=== PATIENT | male | born 1980 | race Caucasian/White ===

== ENCOUNTER 2019-08-28 12:16 | Inpatient (IN) | payer OTHER ==
[~2019-08-28] VITALS: Ht 185.4 cm; Wt 114.5 kg
[~2019-08-28 12:16] MED LIST: AMIT10 PO; NAPR500 PO
[2019-08-28 12:39] LABS: BASOPHILS ABSOLUTE AUTO 0.05 K/mm3 (0.00-0.23); BASOPHILS PERCENT AUTO 1 % (0-2); EOSINOPHILS ABSOLUTE AUTO 0.26 K/mm3 (0.00-0.68); EOSINOPHILS PERCENT AUTO 5 % (0-6); Hematocrit 44.2 % (37.0-53.0); Hemoglobin 14.8 g/dL (13.5-17.5); IMMATURE GRAN ABSOLUTE AUTO 0.02 K/mm3 (0.00-0.10); IMMATURE GRAN PERCENT AUTO 0 % (0-1); LYMPHOCYTES ABSOLUTE AUTO 1.77 K/mm3 (0.84-5.20); LYMPHOCYTES PERCENT AUTO 34 % (21-46); MONOCYTES ABSOLUTE AUTO 0.27 K/mm3 (0.16-1.47); MONOCYTES PERCENT AUTO 5 % (4-13); Mean Corpuscular HGB 27.8 pg (26.0-34.0); Mean Corpuscular HGB Conc 33.5 g/dL (31.5-36.5); Mean Corpuscular Volume 83 fL (80-100); Mean Platelet Volume 9.2 fL (9.1-12.4); NEUTROPHILS ABSOLUTE AUTO 2.88 K/mm3 (1.96-9.15); NEUTROPHILS PERCENT AUTO 55 % (41-73); Platelet Count 181 K/mm3 (150-400); RDW Coefficient Variation 12.7 % (11.7-14.2); RDW Standard Deviation 38.2 fL (35.1-46.3); Red Blood Cell Count 5.33 M/mm3 (4.30-5.90); White Blood Cell Count 5.25 K/mm3 (4.00-11.30)
[2019-08-28 12:59] LABS: Alanine Aminotransfer (ALT/SGP 50 U/L (12-78); Albumin, Blood 3.9 g/dL (3.4-5.0); Albumin/Globulin Ratio 1.3 (0.8-1.8); Alk Phos 62 U/L (50-136); Anion Gap 6 mmol/L (6-16); Aspartate Aminotrans (AST/SGOT 23 U/L (12-37); Bilirubin, Total 0.4 mg/dL (0.1-1.0); Blood Urea Nitrogen 13 mg/dL (8-24); Bun/Creatinine Ratio 12.4 (12.0-20.0); CO2, Blood 29 mmol/L (21-32); Calcium, Blood 8.8 mg/dL (8.5-10.1); Chloride, Blood 107 mmol/L (98-108); Creatinine, Blood 1.05 mg/dL (0.60-1.20); Glomerular Filtration Rate >60 (60-); Glucose, Blood 119 mg/dL (70-99); Potassium, Blood 3.8 mmol/L (3.5-5.5); Sodium, Blood 142 mmol/L (136-145); Total Protein, Blood 6.9 g/dL (6.4-8.2)
[2019-08-28 15:06] LABS: U Amphetamine Screen Not Detected; U Barbituate Screen Not Detected; U Benzodiazapine Screen Not Detected; U Buprenorphine Screen Not Detected; U Cannabinoids Screen DETECTED; U Cocaine Screen Not Detected; U Methadone Screen Not Detected; U Methamphetamine Screen Not Detected; U Opiates Screen Not Detected; U Oxycodone Screen Not Detected; U Phencyclidine Screen Not Detected; U Propoxyphene Screen Not Detected
--- NOTE | 2019-08-28 18:33 | NUR ---
PT ARRIVED TO UNIT FROM ED A&OX4. REPORTS CHEST/ARM PAIN OF 6/10. MEDICATED PER ORDERS FOR PAIN AND PROVIDED WARM BLANKET. DENIES N/V OR SOB. ORIENTED TO ROOM. GUEST AT BEDSIDE. DENIES ANY OTHER NEEDS AT THIS TIME.
--- NOTE | 2019-08-28 20:50 | NUR ---
NURSE CALL PER PT WITH C/O CP LEVEL 8. PT RESTING IN BED SUPINE. PALE APPEARING. POINTS TO MIDCHEST FOR PAIN LOCATION.WHEN DETAILED QUESTIONS ASKED, PT DESCRIBES HEAVY PRESSURE AND TIGHTNESS. REPORTS PAIN ALSO STARTING AT BILAT SHOULDERS TRAVELING DOWN TO ELBOWS.PT WITH CHEST LEAD OFF. I REPLACED LEAD AND VERIFIED WITH Bindo PT HAS NOT SHOWN ANY CHANGES FROM INITIAL TELE PLACEMENT.UNABLE TO MEDICATE FOR PAIN NOT ALLOWABLE PER ORDER FREQUENCY OF PRN DOSING. PT RECEIVED DOSE AT 1828 PER DAY RN.LABS BEING DRAWN AT THIS TIME.WILL BE PLACING CALL OUT TO DOCTOR.ADVISED PT.
--- NOTE | 2019-08-28 21:41 | NUR ---
CALLED LAB REGARDING TROP LEVEL STILL PENDING.RESULTS REPORTED PER SARITA CRITICAL @ 6.57 STAFF IN ATTENDANCE OF PT REPEAT OF VS. I CALLED AND SPOKE WITH DR ROMAN.ADVISED OF CRITICAL TROP AND OF PRIOR SERIAL TROP LEVELS WELL VSS WITH ACTIVE CP. PT HAVING NITRO PATCH BUT NO ORAL NITRO AND NO MORPHINE AVAILABLE FOR PAIN. DR ROMAN ORDERED TRANSFER TO ICU WITH PCU STATUS NO ROOMS AVAILABLE IN PCU. ALSO ORDERED EKG NOW BEING DONE PER Miguel SMITH RN HEPARIN CX ORDERED PHARMACY DOSING.
--- NOTE | 2019-08-28 22:10 | NUR ---
2210 REPORT GIVEN TO LUIS ALFREDO RN AND PT TRANSFERRED PER BED TO ICU 7 WITH Miguel SMITH RN SUPERVISER AND ANGELINA GONZALEZ IN ATTENDANCE.FAMILY ALSO IN ATTENDANCE.
--- NOTE | 2019-08-28 22:15 | NUR ---
ASSUME CARE : TRANSFER FROM ROOM 230 ARRIVE PER LUISE. REPORT RECIEVED FROM TROY WEST. TRANSFER TO BED. MONITOR PLACED SHOWING SINUS RHYTHM/SINUS MARIELA HEART RATE 50'S-60'S. STATES CHEST PAIN 03/07 DR ROMAN AT BEDSIDE. LUNGS CLEAR O2 PLACED AT 2L/MIN PER NASAL CANNULA SPO2 97-99% RESPIRATIONS REGULAR AND EASY AT REST. ABDOMEN SOFT WITH BOWEL SOUNDS FOUR QUADA. PEDAL PULSES PRESENT NO EDEMA NOTED. SO AT BEDSIDE. ORDERS NOTED. CONTINUE TO MONITOR AND REPORT CHANGE IN PATIENT CONDITION
[2019-08-28 22:41] LABS: International Normalized Ratio 0.97; Prothrombin Time Results 10.3 Sec (9.7-11.5)
--- NOTE | 2019-08-28 23:00 | NUR ---
DR DONALDSON IN TO SEE PATIENT ORDERS NOTED
--- NOTE | 2019-08-29 00:27 | NUR ---
PT TO INTERNAL SALES PER BED. SO AT BEDSIDE.
--- NOTE | 2019-08-29 04:35 | NUR ---
RESUME CARE: RETURN TO ROOM FROM DERRICK BARGE OPERATOR REPORT RECIEVED FROM SYLVAIN WEST AWAKE A/O MONITOR INTACT SHOWING SINUS RHYTHM HEART RATE 60'S DENIES CHEST PAIN. CO BACK PAIN MEDICATED WITH 1 MG MORPHINE IV GROIN SITE SOFT, CLEAR. TR BAND SITE CLEAR. DR NI IN TO SEE PT ORDERS NOTED. CONTINUE TO MONITOR AND REPORT CHANGE IN PATIENT CONDITION. SO REMAINS IN ROOM ATTENTIVE TO NEEDS CARES
[2019-08-29 05:06] LABS: BASOPHILS ABSOLUTE AUTO 0.05 K/mm3 (0.00-0.23); BASOPHILS PERCENT AUTO 1 % (0-2); EOSINOPHILS ABSOLUTE AUTO 0.13 K/mm3 (0.00-0.68); EOSINOPHILS PERCENT AUTO 1 % (0-6); Hematocrit 40.2 % (37.0-53.0); Hemoglobin 13.4 g/dL (13.5-17.5); IMMATURE GRAN ABSOLUTE AUTO 0.03 K/mm3 (0.00-0.10); IMMATURE GRAN PERCENT AUTO 0 % (0-1); LYMPHOCYTES ABSOLUTE AUTO 2.29 K/mm3 (0.84-5.20); LYMPHOCYTES PERCENT AUTO 23 % (21-46); MONOCYTES ABSOLUTE AUTO 0.63 K/mm3 (0.16-1.47); MONOCYTES PERCENT AUTO 6 % (4-13); Mean Corpuscular HGB 28.2 pg (26.0-34.0); Mean Corpuscular HGB Conc 33.3 g/dL (31.5-36.5); Mean Corpuscular Volume 85 fL (80-100); Mean Platelet Volume 9.5 fL (9.1-12.4); NEUTROPHILS ABSOLUTE AUTO 7.05 K/mm3 (1.96-9.15); NEUTROPHILS PERCENT AUTO 69 % (41-73); Platelet Count 175 K/mm3 (150-400); RDW Coefficient Variation 12.8 % (11.7-14.2); RDW Standard Deviation 39.7 fL (35.1-46.3); Red Blood Cell Count 4.76 M/mm3 (4.30-5.90); White Blood Cell Count 10.18 K/mm3 (4.00-11.30)
[2019-08-29 05:29] LABS: Anion Gap 7 mmol/L (6-16); Blood Urea Nitrogen 11 mg/dL (8-24); Bun/Creatinine Ratio 11.1 (12.0-20.0); CO2, Blood 26 mmol/L (21-32); Calcium, Blood 8.4 mg/dL (8.5-10.1); Chloride, Blood 105 mmol/L (98-108); Cholesterol 204 mg/dL (50-200); Creatinine, Blood 0.99 mg/dL (0.60-1.20); Glomerular Filtration Rate >60 (60-); Glucose, Blood 104 mg/dL (70-99); HDL Cholesterol 51 mg/dL (>39); LDL/HDL RATIO 2.7; Low Density Lipoprotein Chol 138 mg/dL (0-110); Potassium, Blood 3.8 mmol/L (3.5-5.5); Sodium, Blood 138 mmol/L (136-145); Triglycerides 73 mg/dL (30-140); Very Low Density Lipoprot Chol 14 mg/dL (6-28)
[2019-08-29 05:50] LABS: CPK Creatine Kinase 2599 U/L (39-308); Creatine Kinase MB Index 8.5 (0.0-4.0)
--- NOTE | 2019-08-29 06:00 | NUR ---
SHIFT SUMMARY: RESTS QUIETLY MONITOR INTACT SHOWING SINUS RHYTHM HEART RATE 60'S DENIES CHWEST PAIN LUNGS CLEAR RESPIRATIONS REGULAR AND EASY ON ROOM AIR.SPO2 95% SO AT BEDSIDE SUPPORTIVE OF CARES NEEDS. CONTINUET TO MONITOR AND REPORT CHANGE IN PATIENT CONDITION
[2019-08-29 07:26] LABS: Hematocrit 39.9 % (37.0-53.0); Hemoglobin 13.3 g/dL (13.5-17.5); Mean Corpuscular HGB 28.4 pg (26.0-34.0); Mean Corpuscular HGB Conc 33.3 g/dL (31.5-36.5); Mean Corpuscular Volume 85 fL (80-100); Mean Platelet Volume 9.3 fL (9.1-12.4); Platelet Count 168 K/mm3 (150-400); RDW Coefficient Variation 13.1 % (11.7-14.2); RDW Standard Deviation 40.2 fL (35.1-46.3); Red Blood Cell Count 4.68 M/mm3 (4.30-5.90); White Blood Cell Count 9.52 K/mm3 (4.00-11.30)
--- NOTE | 2019-08-29 08:02 | NUR ---
DR NI: CALL TO PROVIDER TO NOTIFY HIM OF PT's aPTT LEVEL. STS TO RECHECK AT 0830 & OKAY TO PULL R VENOUS SHEATH ONCE aPTT < 60. INFORMED HIM THAT PT HAS NO C/O OF CP AT THIS TIME & THAT TR SITE IS ALSO STABLE. NO OTHER ORDERS AT THIS TIME.
--- NOTE | 2019-08-29 08:35 | NUR ---
ASSUMED CARE: REPORT RECEIVED FROM LUIS ALFREDO Potter RN. ASSUMED CARE OF THIS PT AT APPROX 0700. ON ASSESSMENT, THE PT IS A&O, COOPERATIVE W/ CARE. HE IS SOMEWHAT IRRITABLE R/T LAYING SUPINE S/P GROIN SITE ACCESS FOR ANGIOGRAM, THIS IS CAUSING HIM SOME BACK PAIN. HE CONTINUES TO DENY CP OR SOB SINCE RETURN FROM HELP AID. R RADIAL ACCESS SITE W/ TR BAND WNL, R GROIN SITE ACCESS W/ VENOUS SHEATH IN PLACE WNL; SEE CATH SITE MANAGEMENT INTERVENTIONS. PT ON RA W/ O2 SATS > 92%. MONITOR SHOWS SR W/ HR 70s. BP STABLE. NO GI/ COMPLAINTS. WILL CONTINUE TO MONITOR & UPDATE NEEDED.
--- NOTE | 2019-08-29 10:12 | NUR ---
VENOUS SHEATH REMOVAL: aPTT NOW < 60 & OKAY TO REMOVE VENOUS SHEATH TO R GROIN PER DR NI. VENOUS SHEATH PULLED & MANUAL PRESSURE HELD TO GROIN SITE BY VIKTOR LOW, BRICK KILN WORKER, FOR 10 MINS. AREA FREE OF BLEEDING, BRUISING OR HEMATOMA FORMATION. AREA NOW DRESSED W/ GAUZE & CLEAR OCCLUSIVE TEGADERM, REMAINS STABLE. WILL CONTINUE TO MONITOR & UPDATE NEEDED.
--- NOTE | 2019-08-29 11:09 | NUR ---
DR NI: PROVIDER AT BEDSIDE TO SEE PT. WOULD LIKE REPEAT CBC IN 1-2 HRS TO CHECK PLT COUNT. NO OTHER ORDERS.
--- NOTE | 2019-08-29 11:41 | NUR ---
Echocardiogram completed.
[2019-08-29 12:11] LABS: BASOPHILS ABSOLUTE AUTO 0.05 K/mm3 (0.00-0.23); BASOPHILS PERCENT AUTO 1 % (0-2); EOSINOPHILS ABSOLUTE AUTO 0.05 K/mm3 (0.00-0.68); EOSINOPHILS PERCENT AUTO 1 % (0-6); Hematocrit 41.5 % (37.0-53.0); Hemoglobin 13.6 g/dL (13.5-17.5); IMMATURE GRAN ABSOLUTE AUTO 0.03 K/mm3 (0.00-0.10); IMMATURE GRAN PERCENT AUTO 0 % (0-1); LYMPHOCYTES ABSOLUTE AUTO 1.42 K/mm3 (0.84-5.20); LYMPHOCYTES PERCENT AUTO 17 % (21-46); MONOCYTES ABSOLUTE AUTO 0.63 K/mm3 (0.16-1.47); MONOCYTES PERCENT AUTO 8 % (4-13); Mean Corpuscular HGB 28.1 pg (26.0-34.0); Mean Corpuscular HGB Conc 32.8 g/dL (31.5-36.5); Mean Corpuscular Volume 86 fL (80-100); Mean Platelet Volume 9.5 fL (9.1-12.4); NEUTROPHILS PERCENT AUTO 73 % (41-73); Platelet Count 178 K/mm3 (150-400); RDW Coefficient Variation 12.8 % (11.7-14.2); RDW Standard Deviation 39.9 fL (35.1-46.3); Red Blood Cell Count 4.84 M/mm3 (4.30-5.90); White Blood Cell Count 8.18 K/mm3 (4.00-11.30)
--- NOTE | 2019-08-29 12:20 | NUR ---
UPDATE: PT CONTINUES HAVING NO CHEST PAIN, SLIGHT HTN NOTED WHEN SITTING UP AT 30 DEGREE ANGLE & REVERSE [place] FOR PO INTAKE. R FEMORAL SITE & R RADIAL SITE REMAIN WNL; SEE CATH MANAGEMENT INTERVENTION DOCUMENTATION.
--- NOTE | 2019-08-29 17:34 | NUR ---
SHIFT SUMMARY: NO ACUTE CHANGES THIS SHIFT. PT REMAINS A&O, HE IS NOW IN BETTER SPIRITS SINCE NOT BEING RESTRICTED TO LAYING FLAT & HAS HAD NUMEROUS VISITORS AT BEDSIDE T/O SHIFT. R GROIN SITE REMAINS WNL; NO BLEEDING, BRUISING OR HEMATOMA FORMATION, CAP REFILL <3 SECONDS & PT DENIES N/T TO AFFECTED EXTREMITY. R RADIAL SITE WNL; ARM BOARD REMAINS IN PLACE, AREA FREE OF BLEEDING, BRUISING OR HEMATOMA FORMATION, CAP REFILL < 3 SECONDS & STRONG PLETH NOTED TO AFFECTED HAND. LS ARE CLEAR T/O, PT DENIES SOB, ON RA W/ O2 SATS > 92%. MONITOR SHOWS SR W/ HR 70s. BP STABLE, PT DENIES CP/ CHEST PRESSURE. BTx4, GOOD APPETITE. VOIDS W/O DIFFICULTY USING URINAL AT BEDSIDE. HEPARIN INFUSING PER PHARMACY MANAGEMENT. WILL CONTINUE TO MONITOR & REPORT OFF TO ONCOMING RN.
--- NOTE | 2019-08-29 19:20 | NUR ---
ASSUME CARE; REPORT RECIEVED FROM OFF GOING RN JHON. MONITOR INTACT SHOWING SINUS RHYTHM HEART RATE 60'S. DENIES CHEST PAIN/ DISCOMFORT. VISITS WITH VISITORS IN ROOM. LUNGS CLEAR RESPIRATIONS REGULAR AND EASY ON ROOM AIR. SPO2 95-97% ABDOMEN SOFT WITH BOWEL SOUNDS FOUR QUADS. GROIN SITE AND TR BAND SITE CLEAR. PEDAL PULSES PRESENT NO EDEMA NOTED CONTINUE TO MONITOR AND REPORT CHANBE IN PATIENT CONDITION.
--- NOTE | 2019-08-30 05:59 | NUR ---
SHIFT SUMMARY: RESTS QUIETLY WHEN UNDISTURBED. MONITOR INTACT SHOWING SINUS RHYTHM. HEART RATE 60'S-70'S. DENIES CHEST PAIN DISCOMFORT. LUNG SOUNDS CLEAR RESPIRATIONS REGULAR AND EASY SPO2 GREATER THAN 93% ABDOMEN SOFT WITH BOWEL SOUNDS FOUR QUADS. MINIMAL STANDBY ASSIST VOIDS SHAYY URINE. TR AND GROIN SITES SOFT CLEAR, AIRBOARD IN PLACE CONTINUE TO MONITOR AND REPORT CHANGE IN PATIENT CONDITION.
--- NOTE | 2019-08-30 08:00 | NUR ---
INITIAL ASSESMENT PT ALERT AND ORIENT TIMES FOUR AND DENIES PAIN AT THIS TIME, VERY PLEASENT. VSS, PALP PULSES T/O, AFEBRILE AND NO EDEMA. RA WITH SATS IN THE HIGH 90S AND NO S/S OF RESP DISTRESS OR SOB. ABD SOFT FLAT AND NON TENDER WITH BTS T/O. UO ADEQUATE VIA POWELL CLEAR AND YELLOW. NO SKIN ISSUES AND RADIAL/FEMORAL SITES CDI SOFT AND INTACT WILL CONT TO MONITOR.
--- NOTE | 2019-08-30 17:30 | NUR ---
ASSUMED CARE OF PATIENT AT 1700, PATIENT AND REPORT ARRIVE FROM ICU. PATIENT TRANSFERS SELF TO PCU BED W/O ISSUES, DENIES PAIN, DENIES DISCOMFORT OTHER THAN HUNGER. FINGERFOOD AND SNACKS BROUGHT IN RESPONSE. PATIENT'S RADIAL AND GROIN SITES BOTH INTACT AND WNL, COVERED WITH CLEAR DRESSING, GROIN SITE WITH GAUZE BENEATH. NO SWELLING, NO INDURATION, NO REDNESS, NO SORENESS. PATIENT HAS MANY VISITORS, FAMILY AND FRIENDS.
--- NOTE | 2019-08-30 19:36 | NUR ---
END OF SHIFT SUMMARY PATIENT IS TIRED FROM VISITORS, OTHERWISE DENIES PAIN/DISCOMFORT, HAS NO EXPRESSED NEEDS. GROIN AND RADIAL SITES UNCHANGED. BED LOCKED AND LOW, CALL LIGHT W/IN REACH CARE AND REPORT GIVEN TO ONCOMING SHIFT; HEPARIN DRIP VERIFIED WITH MEGAN WEST.
--- NOTE | 2019-08-31 06:21 | NUR ---
A+O, ready for procedure this am, NPO since midnight, saline locked both IV's flushed and one saline locked other infusing with no s/sx of infection or infiltration at site, rm air staying above 90 for all vs ck's during night, call light in reach, will continue to monitor and treat until share bsr with day staff and pt
--- NOTE | 2019-08-31 07:06 | NUR ---
Bedside report received from Abdi Goyal RN. Heparin drip verified at the bedside
--- NOTE | 2019-08-31 07:42 | NUR ---
assumed care of patient at 0700, pt awake in bed no signs of distress. Radial and groin cath sites intact w/ no drainage and both covered with clear dressing. pt is npo pending label printer intervention.
--- NOTE | 2019-08-31 15:00 | NUR ---
PATIENT LEAVING UNIT BY BED IN CARE OF TWO HEART CENTER STAFF, FOR PLANNED ANGIO PROCEDURE. WILL CONTINUE TO MONITOR UPON HIS RETURN
--- NOTE | 2019-08-31 15:23 | NUR ---
Pt being taken to the heart center for procedure at this time.
--- NOTE | 2019-08-31 16:40 | NUR ---
patient returned from heart center by hosp bed escorted by two H.C. staff. Awake and alert, and hungry Radial site covered with TR band assessed within normal limits, patient denies pain. no swelling, no redness, perfusion and sensation to extremity intact. Taking vital signs per protocol, will continue to monitor
--- NOTE | 2019-08-31 18:25 | NUR ---
POST PROCEDURE VITAL SIGNS AND SITE ASSESSMENT, INCLUDING PERIPHERAL SENSATION AND CAP REFILL PERFORMED Q15 MINUTES FROM ARRIVAL TO UNIT, THEN Q30 MIN FOR ONE HOUR. ALL VSS AND WITHIN NORMAL LIMITS, PT DENIES PAIN/DISCOMFORT, NO CHEST PAIN, NO DYSPNEA. ANGIO SITE REMAINS FREE OF REDNESS, SWELLING, SORENESS, AND BRUISING. REMOVED FIRST TWO ML OF 13 OF AIR FROM TR BAND WITH NO CHANGE TO THE ABOVE ASSESSMENTS. WILL CONTINUE TO MONITOR, NEXT VITAL SIGN/ASSESSMENT IN ONE HOUR. WILL PASS CARE AND REPORT TO ONCOMING SHIFT AT 1900. PT'S BED IS LOCKED AND LOW, CALL LIGHT W/IN REACH, MANY FAMILY/FRIENDS IN ROOM.
--- NOTE | 2019-08-31 19:26 | NUR ---
SHIFT SUMMARY PATIENT CARE AND REPORT GIVEN TO MEGAN WEST AT 1900, INCLUDING VERIFICATION OF ANGIO SITE AND TR BAND ASSESSMENT. PATIENT IS A&O IN BED WITH NO COMPLAINTS, NO ISSUES, GIRLFRIEND IN ROOM.
--- NOTE | 2019-08-31 23:30 | NUR ---
monitored pt and wrist as directed, no s/sx of infection, infiltration or bleeding, released air and removed band, wrapped with coban will continue to reassess and treat as appropriate
--- NOTE | 2019-09-01 07:14 | NUR ---
no significant medical changes noted during shift, no issues at wrist cath site, vss, call light in reach, bsr shared with pt and day shift, saline locked, rm air, looking forward to going home
[2019-09-01] MEDS ORDERED: Aspir 8181 MG PO (10:46)
[2019-09-01] MEDS ORDERED: ELIQUIS5 MG PO (10:46)
[2019-09-01] MEDS ORDERED: LIPITOR80 MG PO (10:47)
[2019-09-01] MEDS ORDERED: CLOP75 PO (10:47)
[2019-09-01] MEDS ORDERED: CARV3.125 PO (10:47)
[2019-09-01] MEDS ORDERED: LISI5 PO (10:48)
== END 2019-09-01 11:56 | disposition home or self-care (01) | DRG 251 ==
LOC: ER 12:16 → ICUE 12:17 → SURS 12:17 → ICUE 22:23 → PCU 08-30 17:13
PROVIDERS: Emergency Medicine; Internal Medicine; Internal Medicine Interventional Cardiology; Pharmacist; Physician Assistant; ADMIT Internal Medicine
PROC: 02C03ZZ Extirpation of Matter from Coronary Artery, One Artery, Percutaneous Approach (ICD-10-PCS; principal; 2019-08-29)
PROC: 02703ZZ Dilation of Coronary Artery, One Artery, Percutaneous Approach (ICD-10-PCS; 2019-08-29)
PROC: B2111ZZ Fluoroscopy of Multiple Coronary Arteries using Low Osmolar Contrast (ICD-10-PCS; 2019-08-31)
DX: I21.4 Non-ST elevation (NSTEMI) myocardial infarction (principal); I23.6 Thrombosis of atrium, auricular appendage, and ventricle as current complications following acute myocardial infarction; K21.9 Gastro-esophageal reflux disease without esophagitis; I10 Essential (primary) hypertension; R91.1 Solitary pulmonary nodule
CPT/HCPCS: 33210; 36415; 71046; 71275; 76937; 80048; 80053; 80061; 82550; 82553; 84484; 85025; 85027; 85347; 85610; 85730; 92973; 92978; 93005; 93010; 93306; 93454; 93458; 96374-59; 96375; 96375-59; 99152; 99153; 99285-25; C1725; C1753; C1757; C1769; C1887; C1894; G0378; J0461; J1170; J1644; J2250; J2270; J3010; J3246; J7030; Q9967

== ENCOUNTER 2019-09-02 09:28 | Inpatient (IN) | payer OTHER ==
[~2019-09-02] VITALS: Ht 185.4 cm; Wt 111.1 kg
[~2019-09-02 09:28] MED LIST changes: +Aspir 8181 MG PO; +CARV3.125 PO; +CLOP75 PO; +ELIQUIS5 MG PO; +LIPITOR80 MG PO; +LISI5 PO
[2019-09-02 10:02] LABS: BASOPHILS ABSOLUTE AUTO 0.03 K/mm3 (0.00-0.23); BASOPHILS PERCENT AUTO 1 % (0-2); EOSINOPHILS ABSOLUTE AUTO 0.16 K/mm3 (0.00-0.68); EOSINOPHILS PERCENT AUTO 3 % (0-6); Hematocrit 42.4 % (37.0-53.0); Hemoglobin 14.4 g/dL (13.5-17.5); IMMATURE GRAN ABSOLUTE AUTO 0.03 K/mm3 (0.00-0.10); IMMATURE GRAN PERCENT AUTO 1 % (0-1); LYMPHOCYTES ABSOLUTE AUTO 1.26 K/mm3 (0.84-5.20); LYMPHOCYTES PERCENT AUTO 21 % (21-46); MONOCYTES ABSOLUTE AUTO 0.57 K/mm3 (0.16-1.47); MONOCYTES PERCENT AUTO 10 % (4-13); Mean Platelet Volume 9.6 fL (9.1-12.4); NEUTROPHILS ABSOLUTE AUTO 3.98 K/mm3 (1.96-9.15); NEUTROPHILS PERCENT AUTO 66 % (41-73); Platelet Count 211 K/mm3 (150-400); RDW Coefficient Variation 12.3 % (11.7-14.2); RDW Standard Deviation 36.8 fL (35.1-46.3); Red Blood Cell Count 5.15 M/mm3 (4.30-5.90); White Blood Cell Count 6.03 K/mm3 (4.00-11.30)
[2019-09-02 10:06] LABS: Mean Corpuscular Volume 82 fL (80-100)
[2019-09-02 10:27] LABS: Alanine Aminotransfer (ALT/SGP 76 U/L (12-78); Albumin, Blood 3.7 g/dL (3.4-5.0); Alk Phos 57 U/L (50-136); Anion Gap 8 mmol/L (6-16); Aspartate Aminotrans (AST/SGOT 41 U/L (12-37); Bilirubin, Total 0.6 mg/dL (0.1-1.0); Blood Urea Nitrogen 19 mg/dL (8-24); Bun/Creatinine Ratio 19.6 (12.0-20.0); CO2, Blood 23 mmol/L (21-32); Calcium, Blood 9.1 mg/dL (8.5-10.1); Chloride, Blood 103 mmol/L (98-108); Creatinine, Blood 0.97 mg/dL (0.60-1.20); Globulin, Blood 3.8 g/dL (2.2-4.0); Glomerular Filtration Rate >60 (60-); Glucose, Blood 95 mg/dL (70-99); Potassium, Blood 4.1 mmol/L (3.5-5.5); Sodium, Blood 134 mmol/L (136-145); Total Protein, Blood 7.5 g/dL (6.4-8.2)
[2019-09-02 12:13] LABS: Creatine Kinase MB 1.9 ng/mL (0.0-3.6); Creatine Kinase MB Index 0.9 (0.0-4.0)
--- NOTE | 2019-09-02 13:59 | NUR ---
Assumed care of Pt on arrival from ED. No signs of distress noted at this time. Call light and possessions in reach. at the bedside. Will continue to monitor.
--- NOTE | 2019-09-02 15:00 | NUR ---
PT C/O EPISODE OF DIARRHEA X1 AND A "BUBBLY STOMACH." PT BELIEVES IT IS R/T RECENT CHANGES IN DIET. EDUCATED PT ON IMPORTANCE OF INFORMING RN OF BOWEL MOVEMENTS, AND TO LEAVE THEM IN THE TOILET FOR RN TO ASSESS. PT INDICATED UNDERSTANDING.
[2019-09-02 16:22] LABS: Creatine Kinase MB 4.1 ng/mL (0.0-3.6)
[2019-09-02 16:26] LABS: Troponin I 3.53 ng/mL (0.000-0.040)
--- NOTE | 2019-09-02 18:16 | NUR ---
A&O X3, FOLLOWS COMMANDS. NO S/S ACUTE DISTRESS NOTED AT THIS TIME. DENIES CHEST PAIN OR PRESSURE. DENIES ANY NEEDS AT THIS TIME. SIDE RAILS UP, CALL LIGHT AND POSSESSIONS IN REACH. FAMILY AT THE BEDSIDE.
--- NOTE | 2019-09-02 22:50 | NUR ---
Assumed care Assumed care of pt at approx 1900; pt presents sitting in bed with friend at bedside. pt denies chest pain or pressure. VSS. Breathing even and unlabored on RA. Heprin Gtt started at 2100 with rate verification completed by this Rn and hot metal charger. See shift assessment for detailed systems assessment. Pt is independant in room, alert and oriented, able to make needs knonw and uses call light appropriately. Will continue to monitor.
[2019-09-03 03:36] LABS: Hemoglobin 14.1 g/dL (13.5-17.5); Mean Corpuscular HGB 27.9 pg (26.0-34.0); Mean Corpuscular HGB Conc 33.6 g/dL (31.5-36.5); Mean Corpuscular Volume 83 fL (80-100); Mean Platelet Volume 9.3 fL (9.1-12.4); Platelet Count 197 K/mm3 (150-400); RDW Coefficient Variation 12.5 % (11.7-14.2); RDW Standard Deviation 37.7 fL (35.1-46.3); Red Blood Cell Count 5.05 M/mm3 (4.30-5.90); White Blood Cell Count 7.67 K/mm3 (4.00-11.30)
--- NOTE | 2019-09-03 06:49 | NUR ---
SHIFT SUMMARY No acute changes overnight. Pt denies cp or pressure. heprin gtt infusing per orders. VSS. breathing remains even and unlabored on RA. pt remains alert and oriented. Independant in room. Plan is for anticoag until cardiac cath on Thursday per Dr. Vallejo's note. No acute concerns to note overnight.
--- NOTE | 2019-09-03 21:15 | NUR ---
HEP GTT INCREASED AT THIS TIME PER ORDERS.
--- NOTE | 2019-09-04 05:24 | NUR ---
SHIFT SUMMARY: NO SIGNIFICANT CHANGES THROUGHOUT NIGHT. VSS. PT A&O X4. PT DENYING CHEST PAIN AND SOB. HEP GTT INFUSING PER EMAR. RATE INCREASED ONCE PER ORDERS. NSR ON TELE. IND IN ROOM. PLAN FOR POSSIBLE ANGIOPLASTY ON THURSDAY.
--- NOTE | 2019-09-04 18:40 | NUR ---
SHIFT NOTE PT HAS REMAINED INDEPENDANT IN ROOM T/O DAY. DENIES CP OR SOB TODAY. VSS. PT AWARE THAT HE WILL BE GOING FOR PROCEEDURE IN HEART CENTER TOMORROW AND WILL BE NPO AFTER MIDNIGHT TONIGHT. PT A/O X4, SKIN PWD AND INTACT.
--- NOTE | 2019-09-05 06:27 | NUR ---
a+o, able to make needs known, drip continuing with no s/sx of infection or infiltration, NPO since midnight, call light in reach able to make needs known, will continue to monitor and treat until share bsr with day staff and pt, in good mood but worried about meaning of cp and continuing blood clot, room air
--- NOTE | 2019-09-05 07:25 | NUR ---
ASSUMED CARE: PT RESTING QUIETLY IN BED. DENIES CP. HEPARIN GTT RUNNING, VERIFIED DOSING WITH MEGAN WEST. PLAN FOR CARDIAC CATH LATER TODAY. NO ACUTE DISTRESS OR CONCERNS AT THIS TIME.
--- NOTE | 2019-09-05 08:59 | NUR ---
PT TAKEN TO WATER PURIFIER. HEART CENTER STAFF ESCORTING VIA WHEEL CHAIR. AT BEDSIDE AND AWARE
--- NOTE | 2019-09-05 10:10 | NUR ---
PT RETURNED FROM HOUSING MANAGEMENT OFFICER WITH RIGHT TR BAND IN PLACE. NO SIGN OF BRUISING/BLEEDING/HEMATOMA. 11CC IN TRBAND AND ARM BOARD ON. PT AWARE TO NOT PUSH/PULL WITH AFFECTED ARM. DR NI CAME TO SEE PT, STATES LIKELY HOME TOMORROW. OK TO EAT. NO NEEDS OR CONCERNS AT THIS TIME.
--- NOTE | 2019-09-05 12:00 | NUR ---
PT EXPRESSED CONCERN ABOUT INSURANCE COVERAGE FOR [employer]. [facility] TO SEE WHAT AUTHORIZATION WAS NEEDED. CLIFFFelicia [employer] SAYS PT NEEDS TO CONTACT HIS INSURANCE. INFORMED PT OF THIS AND PROVIDED FAX NUMBER. LAB ENGINEER ALSO STATES COUPONS WILL BE PROVIDED FOR 30 DAY SUPPLY UNTIL PT CAN BE SEEN BY [facility]. PT AGREEABLE TO THIS PLAN
--- NOTE | 2019-09-05 12:22 | NUR ---
2 mls removed from TR band. no sign of rebleed or hematoma at this time. Pt aware to not push/pull with affected arm
--- NOTE | 2019-09-05 13:11 | NUR ---
2 more cc removed from TR band. no signs of bleeding/hematoma at this time.
[2019-09-05 13:12] LABS: Mean Platelet Volume 9.4 fL (9.1-12.4); Platelet Count 221 K/mm3 (150-400)
--- NOTE | 2019-09-05 13:59 | NUR ---
SMALL AMOUNT OF BLEEDING NOTED. REINFLATE WITH 2 MLS. NO OTHER NEEDS OR CONCERNS AT THIS TIME.
--- NOTE | 2019-09-05 16:10 | NUR ---
2 ML AIR REMOVED FROM TR BAND
--- NOTE | 2019-09-05 16:55 | NUR ---
2 ML AIR REMOVED FROM TR BAND. NO SIGNS OF HEMATOMA OR BLEEDING AT THIS TIME
--- NOTE | 2019-09-05 19:30 | NUR ---
ASSUMED CARE OF PT AT 1930, PATIENT DENIES CHEST PAIN AND SOB. VITAL STABLE. PATIENT ABLE TO AMBULATE TO RESTROOM.
--- NOTE | 2019-09-05 19:36 | NUR ---
SHIFT SUMMARY: TR BAND REMOVED WITH CLEAR DRESSING PLACED OVER TOP. SLIGHT DRAINAGE NOTED. NIGHT RN MYNOR TONAWANDA AROUND. SMALL KNOT NOTED BENEATH INSERTION SITE. PT DENIES PAIN OR CONCERNS AT THIS TIME. FAMILY AT BEDSIDE.
--- NOTE | 2019-09-06 07:26 | NUR ---
PATIENT STABLE OVERNIGHT , DENIES CHEST PAIN AND SOB. NO ACUTE EVENTS OVERNIGHT. PLAN TO DISCHARGE TODAY.
[2019-09-06] MEDS ORDERED: CARV6.25 PO (10:08)
--- NOTE | 2019-09-06 14:58 | NUR ---
DISCHARGE NOTE PT A&Ox4. ANXIOUS TO GO HOME, COOPERATIVE WITH CARE. IND IN ROOM, UP IN CHAIR FOR BREAKFAST. PT HAS RIGHT WRIST SITE, SMALL NODULE NOTED, PER [facility] THIS HAS NOT CHANGES, SMALL AMOUNT OF DRIED BLOOD ON TEGADERM NOTED, PER REPORT HAS NOTE CHANGE. NO ACTIVE BLEEDING, BRUISING OR HEMATOMA NOTED. PT DENEIS PAIN, SOB AND NASUEA. VSS. NO OTHER ACUTE CHANGES NOTED DURING SHIFT. PT AND FAMILY EDUCATED ON DISCHARGE INSTRUCTIONS BY WELLINGTON PORTILLO RN. PT EDUCATED ON MEDICATIONS, HOME CARE AND FOLLOW UP APPOINTMENT. PRESCRIPTIONS SENT TO [facility] AT THE [facility] PER PT REQUEST. PER PT REQUEST, PT LEFT ROOM ON FOOT AT 1010.
== END 2019-09-06 10:10 | disposition home or self-care (01) | DRG 251 ==
LOC: ER 09:28 → PCU 09:29
PROVIDERS: Emergency Medicine; Nurse Practitioner Acute Care; Pharmacist; ADMIT Internal Medicine
PROC: 02C03ZZ Extirpation of Matter from Coronary Artery, One Artery, Percutaneous Approach (ICD-10-PCS; principal; 2018-11-06)
PROC: B240ZZ3 Ultrasonography of Single Coronary Artery, Intravascular (ICD-10-PCS; 2018-11-06)
PROC: B2111ZZ Fluoroscopy of Multiple Coronary Arteries using Low Osmolar Contrast (ICD-10-PCS; 2018-11-06)
DX: I21.4 Non-ST elevation (NSTEMI) myocardial infarction (principal); Z79.82 Long term (current) use of aspirin; Z79.01 Long term (current) use of anticoagulants; E87.5 Hyperkalemia; I95.9 Hypotension, unspecified; E66.9 Obesity, unspecified; Z68.32 Body mass index [BMI] 32.0-32.9, adult
CPT/HCPCS: 36415; 71046; 80053; 82550; 82553; 84484; 85025; 85027; 85049; 85347; 85730; 92973; 92978; 93005; 93010; 93454; 96374; 96376; 99152; 99153; 99285-25; C1753; C1769; C1887; C1894; G0378; J1644; J2250; J3010; J7030; Q9967

== ENCOUNTER → 2020-03-01 | Outpatient (CLI) | payer OTHER ==
[~2020-03-01] MED LIST changes: +CARV6.25 PO
== END | disposition home or self-care (01) ==
LOC: LAB SHORT 08:55 → LAB EV 08:55 → LAB SHORT 11:18
DX: S61.412D Laceration without foreign body of left hand, subsequent encounter (principal)
CPT/HCPCS: 87070; 87077; 87147; 87186; 87205

== ENCOUNTER 2023-01-11 18:21 | Emergency (ER) | payer OTHER ==
[~2023-01-11] VITALS: Ht 185.4 cm; Wt 127.0 kg
[2023-01-11 18:25] VITALS: BP 125/83
== END 2023-01-11 20:28 | disposition home or self-care (01) ==
LOC: ER 18:21
DX: S61.112A Laceration without foreign body of left thumb with damage to nail, initial encounter (principal); I25.2 Old myocardial infarction; F17.200 Nicotine dependence, unspecified, uncomplicated; Z23 Encounter for immunization; W26.0XXA Contact with knife, initial encounter; Z79.899 Other long term (current) drug therapy; Z79.82 Long term (current) use of aspirin; Z79.01 Long term (current) use of anticoagulants
CPT/HCPCS: 12001; 73140; 90471; 90714; 99283-25

== ENCOUNTER → 2024-07-31 | Outpatient (CLI) | payer OTHER ==
[~2024-07-31] MED LIST changes: +ONDA4ODT MM
[2024-07-31 16:50] LABS: BASOPHILS ABSOLUTE AUTO 0.02 K/mm3 (0.00-0.23); BASOPHILS PERCENT AUTO 0 % (0-2); EOSINOPHILS ABSOLUTE AUTO 0.51 K/mm3 (0.00-0.68); EOSINOPHILS PERCENT AUTO 6 % (0-6); Hematocrit 50.8 % (37.0-53.0); Hemoglobin 17.7 g/dL (13.5-17.5); IMMATURE GRAN ABSOLUTE AUTO 0.03 K/mm3 (0.00-0.10); IMMATURE GRAN PERCENT AUTO 0 % (0-1); LYMPHOCYTES ABSOLUTE AUTO 1.34 K/mm3 (0.84-5.20); LYMPHOCYTES PERCENT AUTO 16 % (21-46); MONOCYTES ABSOLUTE AUTO 0.82 K/mm3 (0.16-1.47); MONOCYTES PERCENT AUTO 10 % (4-13); Mean Corpuscular HGB 28.8 pg (26.0-34.0); Mean Corpuscular HGB Conc 34.8 g/dL (31.5-36.5); Mean Corpuscular Volume 83 fL (80-100); NEUTROPHILS ABSOLUTE AUTO 5.78 K/mm3 (1.96-9.15); NEUTROPHILS PERCENT AUTO 68 % (41-73); Platelet Count 233 K/mm3 (150-400); RDW Coefficient Variation 13.2 % (11.7-14.2); RDW Standard Deviation 38.6 fL (35.1-46.3); Red Blood Cell Count 6.15 M/mm3 (4.30-5.90)
[2024-07-31 17:07] LABS: Albumin, Blood 4.1 g/dL (3.4-5.0); Albumin/Globulin Ratio 1.1 (0.8-1.8); Bilirubin, Total 0.9 mg/dL (0.1-1.0); Bun/Creatinine Ratio 13.7 (12.0-20.0); Calcium, Blood 9.2 mg/dL (8.5-10.1); Creatinine, Blood 1.39 mg/dL (0.60-1.20); Globulin, Blood 3.6 g/dL (2.2-4.0); Potassium, Blood 3.9 mmol/L (3.5-5.5); Total Protein, Blood 7.7 g/dL (6.4-8.2)
[2024-07-31 20:27] LABS: Campylobacter Sp Not Detected (NOT DETECT); Enteropathogenic E. coli-EPEC Detected (NOT DETECT); Plesiomonas Shigelloides Not Detected (NOT DETECT)
[2024-07-31 20:28] LABS: Adenovirus F 40/41 Not Detected (NOT DETECT); Astrovirus Not Detected (NOT DETECT); Cryptosporidium Not Detected (NOT DETECT); Cyclospora Cayetanensis Not Detected (NOT DETECT); E. Coli O157 Not Detected (NOT DETECT); Entamoeba Histolytica Not Detected (NOT DETECT); Enteroaggregative E. coli-EAEC Not Detected (NOT DETECT); Enterotoxigenic E. coli-ETEC Not Detected (NOT DETECT); Giardia Lamblia Not Detected (NOT DETECT); Norovirus GI/GII Not Detected (NOT DETECT); Rotavirus A Not Detected (NOT DETECT); Salmonella Sp Not Detected (NOT DETECT); Sapovirus Not Detected (NOT DETECT); Shiga Toxin-prod E. coli-STEC Not Detected (NOT DETECT); Shigella/Enteroin E. coli-EIEC Not Detected (NOT DETECT); Vibrio Cholerae Not Detected (NOT DETECT); Vibrio Sp Not Detected (NOT DETECT); Yersinia Enterocolitica Not Detected (NOT DETECT)
== END | disposition home or self-care (01) ==
LOC: LAB 16:46 → LAB SHORT 16:46
PROVIDERS: Family Medicine
DX: E86.0 Dehydration (principal); R19.7 Diarrhea, unspecified
CPT/HCPCS: 80053; 85025; 87507

== ENCOUNTER 2024-08-01 01:44 | Emergency (ER) | payer OTHER ==
[~2024-08-01] VITALS: Ht 185.4 cm; Wt 113.4 kg
[~2024-08-01 01:44] MED LIST changes: -ONDA4ODT MM
[2024-08-01] MEDS ORDERED: Ketorolac Tromethamine 15mg Vial IV ONE (02:25)
[2024-08-01] MEDS ORDERED: Ondansetron HCl 2 MG / ML 2ML Vial IV ONE (02:25)
[2024-08-01] MEDS ORDERED: Lactated Ringer's 1,000 ML IV ONE (02:25)
[2024-08-01 02:41] LABS: BASOPHILS ABSOLUTE AUTO 0.03 K/mm3 (0.00-0.23); BASOPHILS PERCENT AUTO 0 % (0-2); EOSINOPHILS ABSOLUTE AUTO 0.34 K/mm3 (0.00-0.68); EOSINOPHILS PERCENT AUTO 5 % (0-6); Hematocrit 54.2 % (37.0-53.0); IMMATURE GRAN ABSOLUTE AUTO 0.03 K/mm3 (0.00-0.10); IMMATURE GRAN PERCENT AUTO 0 % (0-1); LYMPHOCYTES ABSOLUTE AUTO 0.92 K/mm3 (0.84-5.20); LYMPHOCYTES PERCENT AUTO 13 % (21-46); MONOCYTES ABSOLUTE AUTO 0.75 K/mm3 (0.16-1.47); MONOCYTES PERCENT AUTO 11 % (4-13); Mean Corpuscular HGB 28.8 pg (26.0-34.0); Mean Corpuscular HGB Conc 35.1 g/dL (31.5-36.5); Mean Corpuscular Volume 82 fL (80-100); Mean Platelet Volume 9.2 fL (9.1-12.4); NEUTROPHILS ABSOLUTE AUTO 4.89 K/mm3 (1.96-9.15); NEUTROPHILS PERCENT AUTO 70 % (41-73); Platelet Count 243 K/mm3 (150-400); RDW Coefficient Variation 12.9 % (11.7-14.2); RDW Standard Deviation 37.8 fL (35.1-46.3); Red Blood Cell Count 6.59 M/mm3 (4.30-5.90); White Blood Cell Count 6.96 K/mm3 (4.00-11.30)
[2024-08-01 02:49] LABS: Source, Urine Clean Catch
[2024-08-01 02:57] LABS: Bilirubin, Urine Neg (Neg); Blood, Urine Neg (Neg); Glucose Qualitative, Urine Neg (Neg); Ketones, Urine Neg (Neg); Leukocyte Esterase, Urine 1+ (Neg); Nitrite, Urine Neg (Neg); Protein, Urine 3+ (Neg); Specific Gravity, Urine 1.025 (1.003-1.022); Urobilinogen, Urine NORM (Normal)
[2024-08-01 03:03] LABS: Albumin, Blood 3.9 g/dL (3.4-5.0); Bilirubin, Total 0.8 mg/dL (0.1-1.0); Bun/Creatinine Ratio 15.3 (12.0-20.0); Calcium, Blood 9.3 mg/dL (8.5-10.1); Creatinine, Blood 1.31 mg/dL (0.60-1.20); Globulin, Blood 3.8 g/dL (2.2-4.0); Magnesium, Blood 1.7 mg/dL (1.6-2.4); Potassium, Blood 3.8 mmol/L (3.5-5.5); Total Protein, Blood 7.7 g/dL (6.4-8.2)
[2024-08-01 03:04] LABS: Appearance, Urine Hazy (Clear); Color, Urine Yellow (P-Yellow)
[2024-08-01 03:05] LABS: Amorphous Light (0-Heavy); Bacteria Few /hpf; Granular Casts 25-50 /lpf (0); Mucus Heavy (0-Heavy); Red Blood Cells, Urine Not Seen /hpf (0-2); Squamous Epithelial Cells Rare /hpf (Few); White Blood Cells, Urine 0-2 /hpf (0-5)
[2024-08-01] MEDS ORDERED: ONDA4ODT MM (04:26)
[2024-08-01] MEDS ORDERED: RX Prepack 2 Tabs Ondansetron ODT 4MG UD ONE (04:30)
[2024-08-01 04:40] VITALS: BP 106/87
== END 2024-08-01 04:49 | disposition home or self-care (01) ==
LOC: ER 01:44
PROVIDERS: Student in an Organized Health Care Education/Training Program
DX: K52.9 Noninfective gastroenteritis and colitis, unspecified (principal); R10.9 Unspecified abdominal pain; N28.9 Disorder of kidney and ureter, unspecified; K80.20 Calculus of gallbladder without cholecystitis without obstruction; E86.0 Dehydration; M48.9 Spondylopathy, unspecified; I25.2 Old myocardial infarction; Z79.01 Long term (current) use of anticoagulants; Z79.82 Long term (current) use of aspirin; Z79.899 Other long term (current) drug therapy
CPT/HCPCS: 74177; 80053; 81001; 83690; 83735; 85025; 96361; 96374-59; 96375; 99284-25; A9270; J1885; J2405; J7120; Q9967